=== PATIENT | male | born 1990 | race Caucasian/White ===

== ENCOUNTER 2016-10-17 13:17 | Emergency (ER) | payer OTHER ==
[~2016-10-17] VITALS: Ht 182.9 cm; Wt 90.7 kg
[~2016-10-17 13:17] MED LIST: AUGMENTIN 875-1 EACH PO; BACTRIM DS 8001 TAB PO; MEDROL4 M2 PO; OXYCODONE5 M1 PO; PROAIR HFA8.5 GM INH; VENTOLIN HFA18 GM INH
[2016-10-17 13:20] VITALS: BP 103/75
--- NOTE | 2016-10-17 13:56 | ED GI/GU/ABDOMINAL COMPLAINT ---
History of Present Illness General Chief Complaint: General Adult Stated Complaint: ACID REFLUX PT STATES"PHARMICIST SAID IT CLD BE [place] Source: patient, old records Exam Limitations: no limitations Vital Signs & Intake/Output Vital Signs & Intake/Output Vital Signs Date Time Temp Pulse Resp B/P Pulse O2 O2 Flow FiO2 Ox Delivery Rate 10/17 1320 97.2 89 18 103/75 96 Room Air Allergies Uncoded Allergies: DOGS (Severe, ASTHMA, SINUSITIS 02/11/14) ENVIRONMENTAL AND SEASONAL (02/21/16) Reconcile Medications Albuterol Sulfate (Ventolin Hfa) 90 MCG HFA.AER.AD 2 PUF INH Q4-6 PRN PRN WHEEZE Esomeprazole (Nexium) 40 MG CAPSULE. 1 CAP PO DAILY gerd Ondansetron HCl (Zofran) 4 MG TABLET 1 TAB PO Q6-8P nausea Triage Note: 26 Y/O MALE C/O "ACID REFLUX", STATES HE HAS BEEN HAVING SYMPTOMS FOR MONTHS. WAS TAKING NEXIUM WITH GOOD EFFECT BUT DID NOT TAKE TODAY. STATES HE WAS TALKING TO PHARMACIST AT [facility] AND ADVISED TO COME TO ED Triage Nurses Notes Reviewed? yes Onset: Abrupt Duration: day(s): (1), week(s): (gerd), constant Timing: recent history Quality/Severity: aching, burning Severity Numbers: 5 Location: epigastric Radiation: chest Activities at Onset: eating Prior Abdominal Problems: similar symptoms No Modifying Factors: none Associated Symptoms: denies HPI: 26-year-old male with history of asthma, GERD presents emergency room requesting a refill of his Nexium which she ran out of yesterday. He states he had a several week history of reflux for which he's been taking Nexium with good effect. He has not sought care for the symptoms until today. He denies any associated abdominal pain with these symptoms however states that yesterday he had 5 bouts of nausea and vomiting which resolves last night. He denies any associated pain yesterday. He's had normal bowel movements today and has been able to tolerate by mouth about any complications today. He states the only reason he came today was for refill of his Nexium. He does not smoke denies alcohol use no chest pain no shortness of breath. No black or bloody stools no hematemesis. There are no modifying factors or associated symptoms. The patient otherwise denies any concerns at this time (ANDREA PEREZ) Past History Travel History Traveled to [place] past 21 day No Medical History Any Pertinent Medical History? 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 No (ANDREA PEREZ) Review of Systems Review of Systems Constitutional: Reports: see HPI. All Other Systems: Reviewed and Negative Comments Review of systems: See HPI, All other systems negative. Constitutional, no chills no fever, no malaise HEENT: No visual changes no sore throat no congestion Cardiovascular: No chest pain , no palpitation Skin, no rashes, no change in skin Respiratory: No dyspnea no cough no sputum GI: nausea vomiting, no diarrhea, : No dysuria Muscle skeletal: No joint pain, no back pain, no neck pain, Neurologic: no headache Psych: No stress Heme/endocrine: No bruising no bleeding no polyuria no polydipsia Immunology: No lymphadenopathy, (ANDREA PEREZ) Physical Exam Physical Exam General Appearance: well developed/nourished, alert, awake Gastrointestinal: soft, non-tender Comments: Well-developed well-nourished person in no acute distress HEENT: Normal EENT exam; PERRL, EOMI, HEAD is atraumatic. moist mucous membranes. Neck: Supple, normal range of motion Back: Nontender, no CVA tenderness. Full range of motion Cardiovascular: Regular rate and rhythms no murmurs rubs Respiratory: . No respiratory distress. Patient speaking in full complete sentences. Breath sounds clear to auscultation bilaterally: NO W/R/R Abdomen: Soft, nontender nondistended, no appreciable organomegaly. Normal bowel sounds. No rebound/guarding, NNo ascites. Extremity: No edema, full range of motion of extremities Neuro: Alert oriented x3, motor sensory normal,There were no obvious focal neurologic abnormalities. Skin: No appreciable rash on exposed skin, skin is warm and dry. Psych: Mood and affect is normal, memory and judgment is normal. Core Measures ACS in differential dx? No Severe Sepsis Present: No Septic Shock Present: No (ANDREA PEREZ) Progress Differential Diagnosis: appendicitis, biliary colic, bowel obstruction, colon cancer, esophageal varices, gastritis, hepatitis, hernia, inflamm bowel dis, pancreatitis, peptic ulcer, PUD/GERD, perforated viscous, SBO Plan of Care: Discussed with the patient need for close follow-up with primary care as well as GI regarding his chronic reflux prescription refill at the patient's request for Nexium was provided. He is tolerating by mouth here he is at his normal appetite today without nausea vomiting or pain prescription for Zofran was provided answered all his questions cleared for discharge Initial ED EKG: none (ANDREA PEREZ) Departure Departure Time of Disposition: 1414 Disposition: HOME OR SELF CARE Condition: Stable Clinical Impression Primary Impression: Gastritis Referrals: [place] GALVAN,MICHELLE Pineda PATIENT HAS NO PRIMARY CARE DR (PCP/Family) CHANDU GALVAN,CECY Additional Instructions: Follow-up with primary care physician Dr. Chandu garcia as well as licensing engineer Dr. Venegas. Zofran as needed for nausea. [place] diet no fatty spicy greasy foods avoid caffeine. nexium as directed. Departure Forms: Customer Survey General Discharge Information Prescriptions: Current Visit Scripts Esomeprazole (Nexium) 1 CAP PO DAILY #30 CAP Ondansetron HCl (Zofran) 1 TAB PO Q6-8P #10 TAB (ANDREA PEREZ) PA/BURGLARY INVESTIGATOR Co-Sign Statement Statement: ED Attending supervision documentation- [] I saw and evaluated the patient. I have also reviewed all the pertinent lab results and diagnostic results. I agree with the findings and the plan of care as documented in the PA's/BURGLARY INVESTIGATOR's documentation. [X] I have reviewed the ED Record and agree with the PA's/BURGLARY INVESTIGATOR's documentation. [] Additions or exceptions (if any) to the PAs/BURGLARY INVESTIGATOR's note and plan are summarized below: [] (MAKAYLA FOX DO)
[2016-10-17] MEDS ORDERED: ZOFRAN4 M2 PO (14:17)
[2016-10-17] MEDS ORDERED: NEXIUM40 M1 PO (14:17)
== END 2016-10-17 14:37 ==
LOC: ERH 13:17
DX: K29.70 Gastritis, unspecified, without bleeding (principal)

== ENCOUNTER 2016-12-22 19:58 | Emergency (ER) | payer OTHER ==
[~2016-12-22] VITALS: Ht 182.9 cm; Wt 104.3 kg
[~2016-12-22 19:58] MED LIST changes: +NEXIUM40 M1 PO; +ZOFRAN4 M2 PO
--- NOTE | 2016-12-22 20:30 | ED UPPER/LOWER EXTREMITY COMPL ---
History of Present Illness General Chief Complaint: General Adult Stated Complaint: "BITE ON L ARM" PER PT Source: patient Exam Limitations: no limitations Vital Signs & Intake/Output Vital Signs & Intake/Output Vital Signs Date Time Temp Pulse Resp B/P Pulse O2 O2 Flow FiO2 Ox Delivery Rate 12/220 97.5 87 18 125/78 96 Room Air Room Air 12/22 2004 97.8 97 20 124/79 95 Room Air ED Intake and Output 12/23 0000 12/22 1200 Intake Total Output Total Balance Patient 230 lb Weight Allergies Uncoded Allergies: DOGS (Severe, ASTHMA, SINUSITIS 02/11/14) ENVIRONMENTAL AND SEASONAL (02/21/16) Reconcile Medications Albuterol Sulfate (Ventolin Hfa) 90 MCG HFA.AER.AD 2 PUF INH Q4-6 PRN PRN WHEEZE Cephalexin (Keflex) 500 MG CAPSULE 1 CAP PO BID CELLULITIS Esomeprazole (Nexium) 40 MG CAPSULE.DR 1 CAP PO DAILY gerd Sulfamethoxazole/Trimethoprim (Bactrim 400-80 MG Tablet) 400 MG-80 MG TABLET 1 TAB PO BID CELLULITIS Triage Note: WOUND LEFT UPPER INNER ARM RED SWOLLEN QUESTIONABLE INSECT BITE Triage Nurses Notes Reviewed? yes Onset: Gradual Duration: better Timing: recent history Severity: mild Severity Numbers: 2 HPI: Patient is a 26-year-old male who presents to emergency room with a two-week history of waxing and waning left medial upper arm swelling redness where he has squeezed the swelling on multiple occasions with PURULENT discharge however in the past few times he squeezed this week no purulence has occurred. Patient is concerned about redness around the region. Denies any IV drug use denies any fever chills. (ANDREA NULL) Past History Travel History Traveled to [place] past 21 day No Medical History Any Pertinent Medical History? 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 No (ANDREA NULL) Review of Systems Review of Systems Constitutional: Reports: no symptoms. EENTM: Reports: no symptoms. Respiratory: Reports: no symptoms. Cardiovascular: Reports: no symptoms. Gastrointestinal/Abdominal: Reports: no symptoms. Genitourinary: Reports: no symptoms. Musculoskeletal: Reports: no symptoms. Skin: Reports: see HPI, erythema. Neurological/Psychological: Reports: no symptoms. Hematologic/Endocrine: Reports: no symptoms. Immunological: Reports: no symptoms. All Other Systems: Reviewed and Negative (ANDREA NULL) Physical Exam Physical Exam General Appearance: no apparent distress, alert Head: atraumatic Neurologic/Tendon: normal motor functions, normal tendon functions Skin: intact Comments: Well-developed well-nourished no apparent distress. HEENT: Atraumatic, extraocular motion intact Neck: Supple, no lymphadenopathy Back: Nontender Respiratory: No respiratory distress Extremities: No edema, full range of motion Neuro: Alert and oriented x3 Psych: Mood affect normal, normal memory normal judgment. Diagram Shoulders Front/Back 1) 2 cm in diameter erythema with a 5 mm centralized tender region no active discharge no purulence (ANDREA NULL) Progress Differential Diagnosis: arterial insufficiency, cellulitis, compartment syndrome , contusion, dislocation, DVT, fracture, gout, septic arthritis, sprain, tendon injury Plan of Care: There was some suspicion of an abscess however I discussed incision and drainage which patient was aware of the benefits of this for treatment of abscess however he adamantly refused incision and drainage in the emergency room. I discussed with patient that he is going to leave AGAINST MEDICAL ADVICE and he is aware in which he was requesting antibiotics ONLY TODAY Patient was strongly advised to follow-up with a primary care doctor as a pamphlet of primary care referrals was given and to return to emergency room if symptoms worsen and he will comply (ANDREA NULL) Departure Departure Disposition: LEFT AGAINST MEDICAL ADVICE Condition: Stable Clinical Impression Primary Impression: Cellulitis of left upper arm Secondary Impressions: Abscess Referrals: PATIENT HAS NO PRIMARY CARE DR (PCP/Family) Additional Instructions: As discussed you a leaving AGAINST MEDICAL ADVICE however begin the prescription of Keflex and Bactrim as directed for the full course. Please call the list of primary care doctors provided to the emergency room for follow-up. If no better in 2 days return to emergency room. If symptoms worsen return to the emergency room. Prescriptions waiting a [facility] pharmacy Departure Forms: Customer Survey General Discharge Information Prescriptions: Current Visit Scripts Sulfamethoxazole/Trimethoprim (Bactrim 400-80 MG Tablet) 1 TAB PO BID #20 TAB Cephalexin (Keflex) 1 CAP PO BID #20 CAP (ANDREA NULL) PA/MANAGER OF CORPORATE COMMUNICATIONS Co-Sign Statement Statement: ED Attending supervision documentation- [] I saw and evaluated the patient. I have also reviewed all the pertinent lab results and diagnostic results. I agree with the findings and the plan of care as documented in the PA's/MANAGER OF CORPORATE COMMUNICATIONS's documentation. [x] I have reviewed the ED Record and agree with the PA's/MANAGER OF CORPORATE COMMUNICATIONS's documentation. [] Additions or exceptions (if any) to the PAs/MANAGER OF CORPORATE COMMUNICATIONS's note and plan are summarized below: [] (MACY GALVAN,NAZ)
[2016-12-22] MEDS ORDERED: BACTRIM 400-801 EACH PO (21:44)
[2016-12-22] MEDS ORDERED: KEFLEX500 M1 PO (21:44)
[2016-12-22 21:50] VITALS: BP 125/78
== END 2016-12-22 22:14 ==
LOC: ERH 19:58
DX: L03.114 Cellulitis of left upper limb (principal); L02.414 Cutaneous abscess of left upper limb

== ENCOUNTER 2017-10-12 12:02 | Emergency (ER) | payer OTHER ==
[~2017-10-12] VITALS: Ht 182.9 cm; Wt 90.7 kg
[~2017-10-12 12:02] MED LIST changes: +BACTRIM 400-801 EACH PO; +KEFLEX500 M1 PO
--- NOTE | 2017-10-12 13:34 | ED GI/GU/ABDOMINAL COMPLAINT ---
History of Present Illness General Chief Complaint: Nausea, Vomiting, Diarrhea Stated Complaint: VOMITING Source: patient Exam Limitations: no limitations Vital Signs & Intake/Output Vital Signs & Intake/Output Vital Signs Date Time Temp Pulse Resp B/P B/P Pulse O2 O2 Flow FiO2 Mean Ox Delivery Rate 10/12 1537 100.9 10/12 1436 100.9 112 12 138/60 97 Room Air 10/12 1209 99.7 111 16 115/68 97 Room Air Room Air Allergies Uncoded Allergies: DOGS (Severe, ASTHMA, SINUSITIS 02/11/14) ENVIRONMENTAL AND SEASONAL (02/21/16) Triage Note: TRIAGE: 27 Y/O MALE PRESENTS C/O +VOMITING - "EVERYTHING INSIDE ME HURTS." PT ALSO REPORTS +DIARRHEA. Triage Nurses Notes Reviewed? yes Onset: Gradual Duration: day(s): Timing: multiple episodes today Quality/Severity: moderate Location: generalized abdomen HPI: 27yo male presents to ED complaining of nausea, vomiting, diarrhea beginning last night. Patient states that he had a few shots last night and yesterday he ate gas station hotdogs, symptoms began following these foods. Patient estimates he has vomited approximately 20 times. He is also complaining of generalized abdominal pain, back pain, "pain everywhere". Patient also admits to chills. He did not get his flu shot this year. He reports mild cough and sore throat beginning this morning. Patient denies fever, sick contacts, recent travel, hematochezia, hematemesis. (Renu ALEJANDRA,Viktoria Hood) Reconcile Medications Albuterol Sulfate (Ventolin Hfa) 90 MCG HFA.AER.AD 2 PUF INH Q4-6 PRN PRN WHEEZE Cephalexin (Keflex) 500 MG CAPSULE 1 CAP PO BID CELLULITIS Esomeprazole (Nexium) 40 MG CAPSULE.DR 1 CAP PO DAILY gerd Ondansetron (Zofran Odt) 4 MG TAB.RAPDIS 1 TAB SL TID PRN nausea Sulfamethoxazole/Trimethoprim (Bactrim 400-80 MG Tablet) 400 MG-80 MG TABLET 1 TAB PO BID CELLULITIS (Millei GALVAN,Greg Padilla) Past History Travel History Traveled to [place] past 21 day No Medical History Any Pertinent Medical History? 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 No (Viktoria Win) Review of Systems Review of Systems Constitutional: Reports: see HPI. EENTM: Reports: see HPI. Respiratory: Reports: see HPI. Cardiovascular: Reports: no symptoms. GI: Reports: see HPI. Genitourinary: Reports: no symptoms. Musculoskeletal: Reports: see HPI. Skin: Reports: no symptoms. Neurological/Psychological: Reports: no symptoms. Hematologic/Endocrine: Reports: no symptoms. Immunologic/Allergic: Reports: no symptoms. All Other Systems: Reviewed and Negative (Viktroia Win) Physical Exam Physical Exam General Appearance: well developed/nourished, no apparent distress, alert, awake Head: atraumatic, normal appearance Eyes: Bilateral: normal appearance. Ears, Nose, Throat, Mouth: hearing grossly normal, moist mucous membrane Neck: normal inspection, supple, full range of motion Respiratory: normal breath sounds, no respiratory distress, lungs clear Cardiovascular: regular rate/rhythm Gastrointestinal: normal bowel sounds, soft, no organomegaly, mild generalized tenderness without rebound or gaurding Back: normal inspection, normal range of motion, nontender Extremities: normal range of motion Neurologic/Psych: awake, alert, oriented x 3 Skin: intact, normal color, warm/dry Core Measures ACS in differential dx? No Sepsis Present: No Sepsis Focused Exam Completed? No (Viktoria Win) Progress Differential Diagnosis: appendicitis, bowel obstruction, diverticulitis, gastritis, inflamm bowel dis, pancreatitis, peptic ulcer, PUD/GERD, perforated viscous, SBO, UTI/pyelo, gastroenteritis, influenza Plan of Care: Orders Procedure Date/time Status RAPID VIRAL INFLUENZA A 10/12 1343 Complete LIPASE 10/12 1343 Complete COMPREHENSIVE METABOLIC PANEL 10/12 1343 Complete CBC WITHOUT DIFFERENTIAL 10/12 1343 Complete AMYLASE 10/12 1343 Complete Laboratory Tests 10/12/17 1355: Anion Gap 14, Estimated GFR > 60, BUN/Creatinine Ratio 27.1 H, Glucose 115 H, Calcium 9.3, Total Bilirubin 0.6, AST 23, ALT 39, Alkaline Phosphatase 69, Total Protein 7.6, Albumin 4.4, Globulin 3.2, Albumin/Globulin Ratio 1.4, Amylase 50, Lipase 27, CBC w Diff MAN DIFF ORDERED, RBC 4.55 L, MCV 93.0, MCH 31.9 H, RDW 12.7, MPV 8.8, Gran % 94.9 H, Lymphocytes % 1.8 L, Monocytes % 3.1, Eosinophils % 0.2, Basophils % 0, Absolute Granulocytes 15.5 H, Absolute Lymphocytes 0.3 L, Absolute Monocytes 0.5, Absolute Eosinophils 0, Absolute Basophils 0, Platelet Estimate ADEQUATE, Normocytic RBCs VERIFIED, Normochromic RBCs VERIFIED, PUBS MCHC 34.3 Microbiology 10/12 1355 NASOPHARYN: Influenza Virus A & B Rapid Smear - COMP Given the low-grade fever, leukocytosis, generalized abdominal pain is recommended to patient obtain CT scan of the abdomen to further rule out intra- abdominal pathology such as appendicitis/diverticulitis/colitis. Patient is declining CT scan at this time, states he feels ready to go home and also declining IV fluids/IV medications. Patient medicated with PO Zofran. He feels better following medications. Patient given Zofran to take at home and instructed on increasing liquids/electrolytes as tolerated and slowly advancing his diet. Patient will return to emergency department if he develops worsening abdominal pain. Patient is nontoxic appearing, no McBurney's point tenderness/ negative Rovsing sign, low suspicion for appendicitis. The patient agrees with the plan of care. Initial ED EKG: none (Renu ALEJANDRA,Viktoria Hood) Departure Departure Disposition: HOME OR SELF CARE Condition: Stable Clinical Impression Primary Impression: Nausea vomiting and diarrhea Referrals: Patient Has No Primary Care Dr (PCP/Family) Additional Instructions: Take Zofran as prescribed as needed for nausea. Drink clear liquids and replace electrolytes with Gatorade as tolerated. Once you are able to tolerate liquids he may slowly advance your diet to soft and bland foods. If you develop worsening abdominal pain or other symptoms please return to the emergency department for further evaluation. Please note that there might be incidental findings in your evaluation that are unrelated to the current emergency department visit. Please notify your primary care doctor about this emergency department visit in order to obtain and review all of the testing performed so that these incidental findings can be monitored as needed. If you had an x-ray performed, please understand that some fractures may not be seen on the initial set of x-rays. If your symptoms persist you might need a repeat set of x-rays to check for such a fracture. If you had a laceration evaluated, please understand that foreign bodies such as glass or wood may not be visible to the naked eye or on plain x-rays. If the wound becomes red, swollen, increasingly more painful or if there is any drainage from the wound, please have it reevaluated by a physician for the possibility of a retained foreign body. If you're unable to follow up as outlined in the discharge instructions please return to the emergency department. Thank you for choosing the [facility] Emergency Department for your care. It was a pleasure to serve you today. Departure Forms: Customer Survey General Discharge Information Prescriptions: Current Visit Scripts Ondansetron (Zofran Odt) 1 TAB SL TID PRN nausea #10 TAB (Renu ALEJANDRA,Viktoria Hood) PA/DEPARTMENT SECRETARY Co-Sign Statement Statement: ED Attending supervision documentation- [] I saw and evaluated the patient. I have also reviewed all the pertinent lab results and diagnostic results. I agree with the findings and the plan of care as documented in the PA's/DEPARTMENT SECRETARY's documentation. [X] I have reviewed the ED Record and agree with the PA's/DEPARTMENT SECRETARY's documentation. [] Additions or exceptions (if any) to the PAs/DEPARTMENT SECRETARY's note and plan are summarized below: [] (Millie GALVAN,Greg Padilla)
[2017-10-12 14:07] LABS: ABSOLUTE BASOPHIL COUNT 0 /CUMM (0.0-0.2); ABSOLUTE EOSINOPHIL COUNT 0 /CUMM (0.0-0.7); ABSOLUTE GRANULOCYTE CT 15.5 /CUMM (1.4-6.5); ABSOLUTE LYMPH COUNT 0.3 /CUMM (1.2-3.4); ABSOLUTE MONOCYTE COUNT 0.5 /CUMM (0.10-0.60); BASOPHIL % 0 % (0.0-2.0); EOSINOPHIL % 0.2 % (0-5); GRANULOCYTE % 94.9 % (42.2-75.2); HEMATOCRIT 42.4 % (42-52); MEAN CORPUSCULAR HGB 31.9 PG (27.0-31.0); MEAN CORPUSCULAR HGB CONC 34.3 G/DL (33.0-37.0); MEAN PLATELET VOLUME 8.8 FL (7.4-10.4); PLATELET COUNT 234 /CUMM (130-400); RBC DISTRIBUTION WIDTH 12.7 % (11.5-14.5); RED BLOOD CELL CT 4.55 /CUMM (4.70-6.10); WHITE BLOOD CELL COUNT 16.3 /CUMM (4.8-10.8)
[2017-10-12 14:36] VITALS: BP 138/60
[2017-10-12] MEDS ORDERED: ZOFRAN ODT4 M1 SL (15:30)
== END 2017-10-12 15:40 ==
LOC: ERH 12:02
PROVIDERS: Physician Assistant
DX: R11.2 Nausea with vomiting, unspecified (principal); R19.7 Diarrhea, unspecified
CPT/HCPCS: 87804; 87804-59; 96372; J1885; J2405; J3101